=== PATIENT | male | born 1935 | race Caucasian/White ===

== ENCOUNTER 2020-10-16 13:22 | Inpatient (IN) | payer MEDICARE, BC ==
[~2020-10-16] VITALS: Ht 172.7 cm; Wt 78.0 kg
[2020-10-16 13:25] VITALS: BP 132/49
[2020-10-16] MEDS ORDERED: HYDROCHLOROTHIA25 M2 PO (13:41)
[2020-10-16] MEDS ORDERED: CHILDREN'S ASPI81 M1 PO (13:41)
[2020-10-16] MEDS ORDERED: LISINOPRIL20 MG PO (13:42)
[2020-10-16] MEDS ORDERED: METFORMIN HCL500 M3 PO (13:42)
[2020-10-16] MEDS ORDERED: SERTRALINE HCL100 MG PO (13:43)
[2020-10-16] MEDS ORDERED: NYSTATIN1 EA10 TOP (13:43)
[2020-10-16] MEDS ORDERED: TYLENOL EXTRA500 MG PO (13:44)
--- NOTE | 2020-10-16 13:49 | EKG ---
[place] [address] ELECTROCARDIOGRAM REPORT Name: JACK DE ANDA Room: [facility] M.R.#: [id number] Admission: Attend Phys: Discharge: Date of : 35 Date of Service: 10/16/20 1328 Report #: [id number] THIS REPORT FOR: //name// [facility] ED Test Date: 2020-10-16 Test Time: 13:28:23 Pat Name: JACK DE ANDA Department: Room: Gender: M Adult Crossing Guard: SANJU : 1935 Requested By: Brenda Amaya Order Number: [id number] MD: Freddy Mares Measurements Intervals [place] Rate: 116 P: 79 WV: 137 QRS: -47 QRSD: 91 T: 50 QT: 317 QTc: 441 Interpretive Statements Sinus tachycardia LAD, 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
[2020-10-16 14:15] LABS: HEMATOCRIT 27.6 % (42.0-52.0); HEMOGLOBIN 9.4 gm/dL (14.0-18.0); MCH 29.1 pg (26.0-34.0); MCHC 34.2 g/dL (28.0-37.0); MCV 85.2 fL (80.0-100.0); MPV 7.7 fl. (7.2-11.1); NUCLEATED RBCS 0 /100WBC; PLATELET COUNT* 413 thou/uL (150-400); RBC 3.23 mil/uL (4.50-6.00); RDW-CV 14.2 % (10.5-14.5); WBC 10.9 thou/uL (4.0-11.0)
[2020-10-16 14:24] LABS: CALCIUM 9.1 mg/dL (8.5-10.1); CREATININE 2.4 mg/dL (0.6-1.3); POTASSIUM 3.7 mmol/L (3.5-5.1)
[2020-10-16 14:35] LABS: ALBUMIN 2.6 g/dL (3.4-5.0); TOTAL PROTEIN 6.8 g/dL (6.4-8.2)
[2020-10-16 14:42] LABS: ABSOLUTE EOSINOPHILS 0.1 thou/uL (0.0-0.7); ABSOLUTE LYMPHOCYTES 0.2 thou/uL (0.8-5.3); ABSOLUTE NEUTROPHILS 10.6 thou/uL (1.6-8.1)
[2020-10-16 14:43] LABS: PLATELET ESTIMATE ADEQUATE
--- NOTE | 2020-10-16 15:37 | NUR ---
TALKED TO Asmita ARCHIBALD AT [facility] HOME ([facility]) THEY FEEL PT WOULD BENEFIT FROM PT, OT OR REHAB TO GET HIM STRONGER BEFORE GOING BACK TO [facility]ED LIV[facility]. PT DID FALL 2 TIMES YESTERDAY. VANESSA NOTIFIED.
[2020-10-16 16:50] LABS: URINE BILIRUBIN NEGATIVE (Negative); URINE BLOOD 2+ (Negative); URINE CLARITY CLEAR; URINE COLOR YELLOW; URINE GLUCOSE-RANDOM NEGATIVE (Negative); URINE KETONES NEGATIVE (Negative); URINE LEUKOCYTES-REFLEX 3+ (Negative); URINE NITRITE-REFLEX POSITIVE (Negative); URINE PROTEIN 2+ (Negative); URINE SPECIFIC GRAVITY 1.015 (1.005-1.030); URINE UROBILINOGEN 0.2 E.U./dl (0.2-1.0)
[2020-10-16 16:53] VITALS: BP 116/56
[2020-10-16 17:30] VITALS: BP 117/58
[2020-10-16 17:43] LABS: CASTS None Seen /LPF (None Seen); SQUAMOUS 4-10 Moderate /LPF (0-3)
[2020-10-16 17:44] LABS: URINE WBC-REFLEX >25 Many /HPF (0-5)
[2020-10-16 17:47] LABS: CRYSTALS None Seen /LPF (None Seen)
[2020-10-16 18:05] LABS: FIBRINOGEN 655 mg/dL (200-340)
--- NOTE | 2020-10-16 19:30 | NUR ---
RECEIVED REPORT FROM ED, PT ARRIVED TO ORTHO FLOOR AROUND 1730. ADMISSION VITALS, ASSESSMENT, HISTORY, AND EDUCATION COMPLETED CHARTED. PT NOT WILLING TO ANSWER QUESTIONS OR OPEN EYES DURING ADMISSIION. FAMILY, DEANN, CALLED AND RECEIVED UPDATE, ASSITED WITH ADMISSION. PT ORIENTED TO ROOM BED AND CALL LIGHT. FALL PRECAUTIONS IN PLACE. CALL LIGHT WITHIN REACH. HOURLY ROUNDING PERFORMED
[2020-10-16 20:00] VITALS: BP 145/68
[2020-10-17 00:43] VITALS: BP 141/59
[2020-10-17 04:58] VITALS: BP 127/52
--- NOTE | 2020-10-17 06:35 | NUR ---
PT ORIENTED TO HIMSELF, FORGETFUL AND CONFUSED. VSS ON 2L. MEDS GIVEN ORDERED. PT TAKES PILLS ONE AT A TIME. INCONTINENT BOWEL AND BLADDER. UNABLE TO URINATE LAST NIGHT, 430 ML ON BLADDER SCAN. NOTIFIED AND ORDER RECEIVED. PT HAD BM X 3-4 TIMES THIS SHIFT, LOOSE STOOL. PT PULLED OUT ONE OF HIS IVs. BED ALARM ON FOR SAFETY. TURNS, HOURLY ROUNDINGS DONE. BLOOD CULTURE CAME BACK POSITIVE THIS MORNING. WILL CONTINUE TO MONITOR.
[2020-10-17 07:50] VITALS: BP 120/62
[2020-10-17 08:21] LABS: ALBUMIN 2.3 g/dL (3.4-5.0); CREATININE 1.8 mg/dL (0.6-1.3); POTASSIUM 3.7 mmol/L (3.5-5.1); TOTAL BILIRUBIN 0.6 mg/dL (<0.1-1.0); TOTAL PROTEIN 5.4 g/dL (6.4-8.2)
[2020-10-17 18:26] VITALS: BP 102/35
--- NOTE | 2020-10-17 19:16 | NUR ---
PT A&OX2 VSS. SINUS ON MONITOR. PT HAS HX DEMENTIA, VERBAL, BUT RESPONSES NOT APPROPRIATE TO QUESTIONS AT TIMES. ORIENTED TO SELF, AND KNOWS NAME. FALL PRECAUTIONS IN PLACE. PT REMAINS ON ISOLATION PRECAUTIONS. ACCUCHECKS, INSULIN ADMINISTERED DIRECTED. PT INCONTINENT OF B/B, LOOSE STOOLS. SATS 97% ON ROOM AIR. PT ABLE TO STATE HE NEEDS TO URINATE, WILL USE URINAL AT BEDSIDE. IV TO LAC PATENT, REMDESIVIR INFUSING. FAMILY MEMBER DEANN UPDATED BY PHONE WELL SITA, [facility]. PT RESTS IN BED WITH CALL LIGHT IN REACH.
[2020-10-17 20:00] VITALS: BP 141/56
[2020-10-18 00:09] VITALS: BP 106/67
[2020-10-18 03:05] LABS: HEPATITIS B SURFACE AG Negative (Negative)
[2020-10-18 03:05] LABS: HIV-1/HIV-2 ANTIBODY Non Reactive (Non Reactive)
[2020-10-18 03:56] VITALS: BP 126/66
--- NOTE | 2020-10-18 04:19 | NUR ---
PT A&O X 2, CONFUSED AT TIMES. MEDS GIVEN ORDERED. VSS ON 2L. PT INCONTINENT. USES CALL LIGHT SOMETIMES. UP WITH 1 TO BR. HOURLY ROUNDINGS, TURNS DONE. BED ALARM ON FOR SAFETY. WILL CONTINUE TO MONITOR.
[2020-10-18 05:36] LABS: GLYCOHEMOGLOBIN (HGB A1C) 7.7 % (4.8-5.6)
[2020-10-18 07:50] VITALS: BP 149/62
[2020-10-18 07:53] LABS: HEMOGLOBIN 9.5 gm/dL (14.0-18.0); MCH 28.5 pg (26.0-34.0); MCHC 33.7 g/dL (28.0-37.0); MCV 84.5 fL (80.0-100.0); MPV 7.4 fl. (7.2-11.1); RBC 3.32 mil/uL (4.50-6.00); RDW-CV 14.5 % (10.5-14.5); WBC 7.9 thou/uL (4.0-11.0)
[2020-10-18 08:13] LABS: CALCIUM 8.7 mg/dL (8.5-10.1); CREATININE 1.5 mg/dL (0.6-1.3)
[2020-10-18 08:21] LABS: POTASSIUM 2.8 mmol/L (3.5-5.1)
[2020-10-18 12:42] VITALS: BP 121/41
[2020-10-18 16:35] LABS: URINE BILIRUBIN NEGATIVE (Negative); URINE BLOOD TRACE (Negative); URINE CLARITY CLEAR; URINE COLOR YELLOW; URINE GLUCOSE-RANDOM NEGATIVE (Negative); URINE KETONES NEGATIVE (Negative); URINE LEUKOCYTES-REFLEX 1+ (Negative); URINE NITRITE-REFLEX NEGATIVE (Negative); URINE PROTEIN TRACE (Negative); URINE SPECIFIC GRAVITY 1.025 (1.005-1.030); URINE UROBILINOGEN 0.2 E.U./dl (0.2-1.0)
[2020-10-18 16:53] LABS: CRYSTALS None Seen /LPF (None Seen); HYALINE CASTS 0-3 Few /LPF (None Seen); MUCUS None Seen strn/LPF (None Seen); SQUAMOUS 0-3 Few /LPF (0-3); URINE RBC 0-2 Rare /HPF (0-2); URINE WBC-REFLEX 6-15 Few /HPF (0-5)
[2020-10-18 16:54] LABS: BACTERIA-REFLEX 1-9 Few /HPF (None Seen)
--- NOTE | 2020-10-18 19:01 | NUR ---
PT AWAKE/ALERT, CONFUSED. VSS. ACCUCHECKS, INSULIN ADMINISTERED ORDERED. PT IMPULSIVE, FALL PRECAUTIONS IN PLACE. BED AND CHAIR ALARMS IN PLACE. PT GETS UP WITHOUT REQUESTING HELP, PT ALSO USES CALL LIGHT FREQUENTLY. STOOL SAMPLE COLLECTED AND SENT TO LAB. SINUS RHYTHM ON MONITOR. PT ON ROOM AIR, 97%. IV TO LAC PATENT, DRESSING IN TACT. PT RESTS IN BED WITH CALL LIGHT IN REACH.
[2020-10-18 20:00] VITALS: BP 156/56
[2020-10-19 01:35] VITALS: BP 160/73
--- NOTE | 2020-10-19 03:31 | NUR ---
ASSUMED PT CARE AT APPROX 1930. PT IS AWAKE, CONFUSED, IMPULSIVE. PT IS TRACING SR WITH OCCASIONAL PACs ON THE [facility]. PT IS NOT IN RESPIRATORY DISTRESS, NO DESATURATIONS NOTED ON ROOM AIR. PT DENIES PAIN/DISCOMFORT. NO ACUTE CHANGES THIS SHIFT. HIGH FALL PRECAUTIONS IN PLACE. CALL LIGHT WITHIN REACH. PT IS CLOSELY MONITORED.
[2020-10-19 04:00] VITALS: BP 171/79
[2020-10-19 05:26] LABS: HEMATOCRIT 24.3 % (42.0-52.0); HEMOGLOBIN 8.3 gm/dL (14.0-18.0); MCH 28.7 pg (26.0-34.0); MCHC 34.3 g/dL (28.0-37.0); MCV 83.6 fL (80.0-100.0); MPV 7.1 fl. (7.2-11.1); RBC 2.9 mil/uL (4.50-6.00); RDW-CV 14.2 % (10.5-14.5); WBC 6.5 thou/uL (4.0-11.0)
[2020-10-19 05:38] LABS: CALCIUM 8.2 mg/dL (8.5-10.1); CREATININE 1.2 mg/dL (0.6-1.3); POTASSIUM 3.3 mmol/L (3.5-5.1)
[2020-10-19 08:00] VITALS: BP 150/53
--- NOTE | 2020-10-19 10:48 | NUR ---
KAT[facility]NN[facility] CALLED AND SAID THEY WERE ON SERVICE FOR HOME HEALTH WITH PT.AT THE [facility] AND WOULD BE GLAD TO RESUME HIM AT DISCHARGE. [facility] AND IENNBFD-[phone]/ [phone].
[2020-10-19 12:00] VITALS: BP 135/67
--- NOTE | 2020-10-19 14:30 | NUR ---
SPOKE WITH PTS KAPIL AND CARMEN. PT.LIVES AT [facility] IN THEIR [facility]. HE SAID HE LIKES TO WANDER THE HALLS AND GETS UP BY HIMSELF. DOES NOT USE WALKER. HE HAS FALLEN 7 TIMES SINCE 10/03. THEY EITHER SEND HIM TO [facility] OR [facility]. TESTED POSITIVE FOR COVID ON 10/03 AT [facility]. HE FEELS HE MAY NEED TO FIND HIM LTC PLACEMENT. HE WOULD LIKE A REFERRAL SENT TO [facility]. HE DOES WANT HIM TO RETURN TO THE [facility] THIS WEEK WHEN DISCHARGED, HE IS TO GET SECOND COVID VACCINE ON MON. POTENTIAL DISCHARGE TOMORROW IF REMAINS STABLE. CM WILL FAX REFERRAL TO [facility]. PT.TO START PT/OT TOMORROW.
[2020-10-19 17:00] VITALS: BP 97/56
--- NOTE | 2020-10-19 18:14 | NUR ---
PT ALERT, NOT ORIENTED AND VERY IMPULSIVE. HIGH FALL PRECAUTIONS IN PLACE FOR PATIENT SAFETY. SPOKE WITH CASE MANAGEMENT, FAMILY SALES CLERK SUPERVISOR, AND PLACEMENT FACILITY FOR DISCHARGE PLANNING PREPARATION. VSS
[2020-10-19 19:55] VITALS: BP 150/61
[2020-10-20] VITALS (7 sets, daily range): BP systolic 104–153; BP diastolic 54–68
--- NOTE | 2020-10-20 05:26 | NUR ---
PT SLEPT WELL OFF AND ON OVERNIGHT, SETTING OFF BED ALARM SEVERAL TIMES TRYING TO GET OOB TO GO TO BSC. UP WITH ASSIST TO BSC AND VOIDED SEVERAL TIMES, SOME INCONTINENCE-NATO CARE GIVEN AND BARRIER CREAM APPLIED TO BUTTOCKS. HS ACCUCHECK 102, NO INSULIN GIVEN. TELE SB, SR. ROOM AIR SATS 97-98%. [place], CONFUSED-HX DEMENTIA. AO TO SELF ONLY. AM LABS ORDERED. AMALIA MEDRANO IV. TAKES PILLS WHOLE WITH WATER AND ASSIST. REMAINS ON COVID ISOLATION. DC PLANNING.
[2020-10-20 05:29] LABS: ABSOLUTE BASOPHILS 0.1 thou/uL (0.0-0.2); ABSOLUTE LYMPHOCYTES 0.8 thou/uL (0.8-5.3); ABSOLUTE MONOCYTES 0.5 thou/uL (0.0-1.2); ABSOLUTE NEUTROPHILS 7.2 thou/uL (1.6-8.1); BASOPHILS 0.7 %; EOSINOPHILS 0.3 %; HEMATOCRIT 25.6 % (42.0-52.0); HEMOGLOBIN 8.7 gm/dL (14.0-18.0); LYMPHOCYTES 9.6 %; MCH 28.7 pg (26.0-34.0); MCHC 34.1 g/dL (28.0-37.0); MCV 84.1 fL (80.0-100.0); MONOCYTES 5.4 %; MPV 7.3 fl. (7.2-11.1); NUCLEATED RBCS 0 /100WBC; PLATELET COUNT* 348 thou/uL (150-400); RBC 3.04 mil/uL (4.50-6.00); RDW-CV 14.6 % (10.5-14.5); WBC 8.5 thou/uL (4.0-11.0)
[2020-10-20 05:55] LABS: CALCIUM 8.2 mg/dL (8.5-10.1); CREATININE 1.2 mg/dL (0.6-1.3); POTASSIUM 3.8 mmol/L (3.5-5.1)
--- NOTE | 2020-10-20 10:19 | NUR ---
Infection Prevention Note: Per [facility] patient had a negative Covid 19 test on 09/30/20. Patient had a positive Covid 19 PCR test on 10/09/20.
--- NOTE | 2020-10-20 16:53 | NUR ---
FAXED PT EVAL [facility] 10/19 TO [facility]. SPOKE WITH ISABEL ZACARIAS SON. HE SAID [facility] FEELS THEY CAN ACCEPT PT.BUT THEIR DIR.OB BUSINESS OFFICE HAS BEEN OFF DUE TO THE WEATHER. SHE WILL HAVE THE FINAL SAY. ALSO THEY ARE GIVING COVID VACCINES ON 11/02. HE COULD POSSIBLY GET HIS SECOND DOES THERE. HE SAID SAID PT.MAY BE IN HOSPITAL 1-2 MORE DAYS. ID CONSULT. CM WILL FOLLOW.
--- NOTE | 2020-10-20 18:37 | NUR ---
PT AWAKE ALERT, ORIENTED TO SELF. PT CONFUSED AND IMPULSIVE. FALL PRECAUTIONS IN PLACE. PT INCONTINENT OF BOWEL AT TIMES. IV TO RAC PATENT, DRESSING C/D/I. PT REMAINS SINUS ON MONITOR. PT ON ROOM AIR, SAT 95%. PT BATHED WITH THERAPY THIS SHIFT. PT ABLE TO EAT MEALS WITH SET UP ONLY. PT DENIES PAIN. PT RESTS IN ROOM WITH FALL PRECAUTIONS IN PLACE AND CALL IGHT IN REACH.
[2020-10-21 04:45] VITALS: BP 136/53
--- NOTE | 2020-10-21 05:29 | NUR ---
PT PLEASANTLY CONFUSED OVERNIGHT. IMPULSIVE, GETTING OUT OF BED TO USE BSC. SEVERAL STOOLS OVERNIGHT AFTER CT ABD WITH CONTRAST YESTERDAY. ROOM AIR SAT 95-97%. SL IV. TELE SR, PAC'S. AM LABS. CALL LITE IN EASYR REACH, BED ALRM ON FOR SAFETY. REMAINS ON COVID ISOLATION.
[2020-10-21 05:36] LABS: HEMATOCRIT 26.2 % (42.0-52.0); HEMOGLOBIN 8.9 gm/dL (14.0-18.0); MCH 28.7 pg (26.0-34.0); MCHC 33.8 g/dL (28.0-37.0); MCV 84.8 fL (80.0-100.0); MPV 7.7 fl. (7.2-11.1); NUCLEATED RBCS 0 /100WBC; PLATELET COUNT* 358 thou/uL (150-400); RBC 3.09 mil/uL (4.50-6.00); RDW-CV 14.5 % (10.5-14.5); WBC 9.7 thou/uL (4.0-11.0)
[2020-10-21 06:13] LABS: ALBUMIN 2.4 g/dL (3.4-5.0); CREATININE 1.2 mg/dL (0.6-1.3); POTASSIUM 3.7 mmol/L (3.5-5.1); TOTAL BILIRUBIN 0.5 mg/dL (<0.1-1.0); TOTAL PROTEIN 5.9 g/dL (6.4-8.2)
[2020-10-21 06:22] LABS: CALCIUM 8.2 mg/dL (8.5-10.1)
[2020-10-21 07:17] LABS: ABSOLUTE LYMPHOCYTES 1.1 thou/uL (0.8-5.3); ABSOLUTE NEUTROPHILS 8.6 thou/uL (1.6-8.1); METAMYELOCYTES 6 %; PLATELET ESTIMATE ADEQUATE
[2020-10-21 08:30] VITALS: BP 128/52
--- NOTE | 2020-10-21 12:30 | NUR ---
SPOKE WITH JANICE ZACARIAS. HE SAID [facility] PT.TO A SKILLED BED WHEN READY FOR DISCHARGE. THEY ARE GIVING COVID VACCINES ON 11/02 AND PT COULD GET ONE THERE. DISCUSSED WITH . HE SAID THAT WILL BE FINE TO GET VACCINE AT [facility]. PROBABLE DISCHARGE ON MONDAY. IVAB WOULD BE COMPLETE. [facility] LET [facility] KNOW OF PROBABLE DISCHARGE DATE.
--- NOTE | 2020-10-21 14:57 | CON ---
[address] [address] CONSULTATION Name: JACK DE ANDA Room: [address] ADM IN M.R.#: [id number] Admission: 10/16/20 Attend Phys: Da Meneses MD Discharge: Date of : 35 Report #: [id number] THIS REPORT FOR: cc: Kali Ortiz MD, Srinath MD ~ Khosla, Parveen K. MD DATE OF SERVICE: 10/19/2020 HISTORY OF PRESENT ILLNESS: This is an 85-year-old male patient who is not able to provide any reliable history. He just keeps saying that leave me alone. I made multiple attempts to get any history from him and it was unsuccessful. Later on, he was equally uncooperative with examination. I got the history from the records and I called the patient's stepson and talked to him. Stepson is the durable power of attorney lawyer. It looks like the patient has a confirmed diagnosis of Alzheimer disease. [facility] As I understand from the stepson, his workup included multiple imaging studies of the brain including MRI. He used to live with his , but his memory kept getting worse and he started wandering off and they were scared he will fall and they put him in a long-term when they changed that condition away from his . He does not know months and days. He can recognize close relatives as I understand. It looks like the patient's saturation was dropping into 70s before his situation deteriorated. He does have a history of being COVID positive. REVIEW OF SYSTEMS: I did carry out 14-point review of systems the best I could carry out. He does have a history of hypertension, diabetes, depressive disorder and Alzheimer's. Alzheimer's is going on for a long time. Presently, he is in isolation. PAST MEDICAL HISTORY: Positive for Alzheimer disease, which is becoming worse recently. FAMILY HISTORY: Unremarkable. SOCIAL HISTORY: As described above. PHYSICAL EXAMINATION: Indicates he is very reluctant to carry out any examination. He would not tell me what month and what date it is, but according to the durable power of attorney lawyer, he does know that even in the baseline. His speech appeared to be there. Fund of knowledge is markedly diminished. Cranial nerve examination 2-12 was attempted, but he refused. Neuromuscular examination was attempted. It is almost impossible to carry out because he would not cooperate. There is no meningeal sign. There is no carotid bruit. He does not appear to be in marked respiratory distress. His blood pressure is pretty low at 97/56, respirations 20, pulse is 65, temperature is 97.1. [place] [address] CONSULTATION Name: JACK DE ANDA Room: [address] IN M.R.#: [id number] Admission: 10/16/20 Attend Phys: Da Meneses MD Discharge: Date of : 35 Report #: [id number] LABORATORY DATA: His white count is normal. His cardiac examination appears unremarkable. Does not appear to have any thyroid mass or carotid bruit. He did have a CT scan of the head on admission, which showed chronic changes, but no acute change. IMPRESSION: This patient appeared to have Alzheimer disease, which appeared to have decompensated. This may be because of his hypoxia. This may be because of his recent infection or a combination. Other etiology like stroke, medication-related problem or even BEEF GRADER infection cannot be excluded. I discussed with the durable power of attorney lawyer in detail. I talked to him that I can do further testing like an MRI, spinal tap, etc., look for his altered mental status. He is not interested in that. He wants the patient conservative care. I also talked to him that he has multiple other issues and those will be addressed by primary care and admitting doctor. I will confine myself to his altered mental status and he understands that. I reviewed his record and his imaging studies and his lab and I spent more than 50 minutes of time taking care of this patient and majority was spent counseling and coordinating. I did order a TSH, vitamin B12, etc., to complete the workup. Please check on that. Otherwise, I do not have any specific thing to add and we will sign off, but please call if there is any question. <ELECTRONICALLY SIGNED> By: Abraham Higuera MD 10/21/20 1457 31 Pmorgan Higuera MD /nt
[2020-10-21 15:46] VITALS: BP 126/65
--- NOTE | 2020-10-21 18:29 | NUR ---
PT ORIENTED TO SELF. CONFUSED AND IMPULSIVE. FALL PRECAUTIONS IN PLACE INCLUDING BED ALARM. CALL LIGHT REMAINS WITHIN REACH. PT FREQUENTLY REMINDED TO CALL FOR ASSISTANCE. PT GIVEN PRN TYLENOL FOR HEADACHE. PT STILL COMPLAINED OF HEADACHE DR. MOLINA NOTIFIED. ORDERS GIVEN. PT RESTING ON RIGHT SIDE IN BED AT THIS TIME. PT THANKFUL FOR HELP. IV FLUSHED. NO COMPLAINTS OF HEADACHE AT THIS TIME. WILL CONTINUE TO MONITOR.
[2020-10-21 18:50] VITALS: BP 115/40
[2020-10-21 19:30] VITALS: BP 133/49
[2020-10-22] VITALS: BP 136/51
[2020-10-22 04:00] VITALS: BP 140/52
[2020-10-22 04:33] LABS: ABSOLUTE EOSINOPHILS 0.1 thou/uL (0.0-0.7); ABSOLUTE LYMPHOCYTES 1.1 thou/uL (0.8-5.3); ABSOLUTE MONOCYTES 0.4 thou/uL (0.0-1.2); ABSOLUTE NEUTROPHILS 7.1 thou/uL (1.6-8.1); BASOPHILS 0.3 %; EOSINOPHILS 0.7 %; HEMATOCRIT 30.4 % (42.0-52.0); HEMOGLOBIN 10.3 gm/dL (14.0-18.0); LYMPHOCYTES 12.9 %; MCH 28.7 pg (26.0-34.0); MCHC 33.8 g/dL (28.0-37.0); MCV 84.8 fL (80.0-100.0); MONOCYTES 4.6 %; MPV 7.3 fl. (7.2-11.1); NUCLEATED RBCS 0 /100WBC; PLATELET COUNT* 410 thou/uL (150-400); POLYS 81.5 %; RBC 3.59 mil/uL (4.50-6.00); WBC 8.7 thou/uL (4.0-11.0)
[2020-10-22 04:46] LABS: CALCIUM 7.8 mg/dL (8.5-10.1); CREATININE 1.2 mg/dL (0.6-1.3); POTASSIUM 3.6 mmol/L (3.5-5.1)
--- NOTE | 2020-10-22 06:51 | NUR ---
PATIENT HAS REMAINED ALERT AND ORIENTED X 1-2. VERY PLEASANTLY CONFUSED. FALL PRECAUTIONS IN PLACE. UP TO BSC WITH CGA BUT TRIGGERING BED ALARM EVERYTIME TONIGHT. MEDS PER ORDERS. VITAL SIGNS STABLE ON ROOM AIR. NOTED 2 SOFT SMALL TO MODERATE BM'S WHICH APPEARED TO HAVE BLOOD IN OR AROUND THEM. MESSAGE SENT AND RECEIVED TO DR. STUART AT 0644 THIS AM TO REPORT. ENHANCED ISOLATION. CONTINUE TO MONITOR.
[2020-10-22 10:10] VITALS: BP 127/53
[2020-10-22 12:30] VITALS: BP 142/62
--- NOTE | 2020-10-22 15:00 | NUR ---
LEFT MESSAGE AT [facility] FOR ADMISSIONS THAT PT.MIGHT BE READY FOR DISCHARGE TOMORROW. ASKED FRO A RETURN CALL. RETURN CALL NOT RECEIVED. PT.ON ROOM. A&O 1-2. WILL CONTINUE PLAN OF CARE.
[2020-10-22 16:00] VITALS: BP 116/52
[2020-10-22 20:15] VITALS: BP 132/58
[2020-10-23 00:05] VITALS: BP 128/60
[2020-10-23 04:00] VITALS: BP 122/63
--- NOTE | 2020-10-23 06:09 | NUR ---
PT SLEPT OFF AND ON OVERNIGHT, IMPULSIVE AND SETS BED ALARM OFF WHEN TRYING TO GET OOB TO BSC TO URINATE. VOIDING SEVERAL TIMES OVERNIGHT GOOD AMOUNT EACH TIME. ONE SMALL SOFT BROWN BM. RAC SL IV. HS ACCUCHECK 134, NO INSULIN GIVEN. AM LAB DRAWN. TELE SR, SATS MID TO HIGH 90'S ON ROOM AIR OVERNIGHT. PLEASANTLY CONFUSED. POSSIBLE DC TO SNF TODAY. REMAINS ON COVID ISOLATION. CALL LITE IN EASY REACH AND BED ALARM ON MIDDLE, MORE SENSITIVE SETTING DUE TO IMPULSIVITY AND HISTORY OF FREQUENT FALLS.
[2020-10-23 07:30] VITALS: BP 142/52
[2020-10-23 08:00] VITALS: BP 142/52
[2020-10-23 08:30] VITALS: BP 142/52
[2020-10-23 10:23] VITALS: BP 142/52
--- NOTE | 2020-10-23 10:44 | NUR ---
PT.HAS DISCHARGE ORDERS TO GO TO A SKILLED BED AT [facility]. NOTIFIED [facility] AND FAXED DISCHARGE SUMMARY AND MED ORDERS TO [phone]. DISCUSSED WITH ELIZABETH ANDERSEN. [employer] ARRANGED WITH [employer] FOR 1-1:30. HOSPITAL TO PAY FOR RIDE. CHART TO BE COPIED TO GO WITH PT. NATHALY WILL CALL REPORT. LEFT FOR SONDEANN TO CALL CM BACK.
--- NOTE | 2020-10-23 13:40 | NUR ---
PATIENT DISCHARGED TO [facility]. REPORT CALLED TO JOSE ALEJANDRO. COPY OF CHART AND DISCHARGE PAPERS SENT WITH TRANSPORTER. SON CALLED BUT NO ANSWER AND NO VOICE MAIL SET-UP. PATIENT ASSISTED WITH GETTING DRESSED. PATIENT UP STANDBY ASSIST TO WHEELCHAIR. IV REMOVED. BELONGINGS PACKED. PATIENT LEFT BY ANNIE BHATT AT THIS TIME.
--- NOTE | 2020-10-23 13:40 | NUR ---
I HAVE REVIEWED AND AGREE WITH [facility].
== END 2020-10-23 13:40 | DRG 871 ==
LOC: M.ERS 13:22 → M.ORTHSURG 15:38 → M.TBA-ER 15:38 → M.ORTHSURG 17:06
PROVIDERS: Family Medicine; Internal Medicine; Physician Assistant; ADMIT Internal Medicine; ATTEND Internal Medicine
PROC: XW033E5 Introduction of Remdesivir Anti-infective into Peripheral Vein, Percutaneous Approach, New Technology Group 5 (ICD-10-PCS; principal; 2020-10-16)
DX: A41.51 Sepsis due to Escherichia coli [E. coli] (principal); U07.1 COVID-19; J96.01 Acute respiratory failure with hypoxia; G92 Toxic encephalopathy; N17.0 Acute kidney failure with tubular necrosis; J12.82 Pneumonia due to coronavirus disease 2019; E44.0 Moderate protein-calorie malnutrition; F32.9 Major depressive disorder, single episode, unspecified; G30.9 Alzheimer's disease, unspecified; F02.80 Dementia in other diseases classified elsewhere, unspecified severity, without behavioral disturbance, psychotic disturbance, mood disturbance, and anxiety; N30.91 Cystitis, unspecified with hematuria; I12.9 Hypertensive chronic kidney disease with stage 1 through stage 4 chronic kidney disease, or unspecified chronic kidney disease; E11.22 Type 2 diabetes mellitus with diabetic chronic kidney disease; E11.65 Type 2 diabetes mellitus with hyperglycemia; N18.9 Chronic kidney disease, unspecified; E87.6 Hypokalemia; Z88.0 Allergy status to penicillin; Z68.26 Body mass index [BMI] 26.0-26.9, adult; Z79.899 Other long term (current) drug therapy